=== PATIENT | female | born 1950 | race Caucasian/White ===

== ENCOUNTER → 2018-12-30 10:59 | Outpatient (CLI) | payer MEDICARE, OTHER, SELFPAY ==
--- NOTE | 2018-12-30 | DI.MG.S_ITS ---
BILATERAL DIGITAL SCREENING MAMMOGRAM 3D/2D WITH CAD: 12/30/2018 Comparison is made to exams dated: 12/24/2017 mammogram - [facility], 12/22/2016 mammogram, and 12/17/2015 mammogram - [facility]. The tissue of both breasts is extremely dense, which lowers the sensitivity of mammography. Current study was also evaluated with a Computer Aided Detection (CAD) system. No significant masses, calcifications, or other findings are seen in either breast. There has been no significant interval change. IMPRESSION: NEGATIVE There is no mammographic evidence of malignancy. A 1 year screening mammogram is recommended. This exam was interpreted at Station ID: [id number]. NOTE: For mammograms, a report in lay terms will be sent to the patient. Approximately 15% of breast malignancies will not be visualized mammographically. In the management of a palpable breast mass, a negative mammogram must not discourage biopsy of a clinically suspicious lesion. Electronically Signed By: Sony camarillo/abelino:12/31/2018 19:44:25 copy to: MARIELLA MIRANDA, [facility], ph: [phone] letter sent: Normal Exam ACR BI-RADS Category 1: Negative 3341F
== END ==
PROVIDERS: PCP Hospitalist; Visit Provider Psychologist School
DX: Z12.31 Encounter for screening mammogram for malignant neoplasm of breast (principal)
CPT/HCPCS: 77063; 77067

== ENCOUNTER → 2020-03-01 13:39 | Outpatient (CLI) | payer MEDICARE, OTHER, SELFPAY ==
--- NOTE | 2020-03-01 | DI.MG.S_ITS ---
BILATERAL DIGITAL SCREENING MAMMOGRAM 3D/2D WITH CAD: 03/01/2020 CLINICAL: Routine screening. Comparison is made to exams dated: 12/30/2018 mammogram, 12/24/2017 mammogram - [facility], and 12/22/2016 mammogram - [facility]. The tissue of both breasts is extremely dense, which lowers the sensitivity of mammography. Current study was also evaluated with a Computer Aided Detection (CAD) system. No significant masses, calcifications, or other findings are seen in either breast. There has been no significant interval change. IMPRESSION: NEGATIVE There is no mammographic evidence of malignancy. A 1 year screening mammogram is recommended. This exam was interpreted at Station ID: [id number]. NOTE: For mammograms, a report in lay terms will be sent to the patient. Approximately 15% of breast malignancies will not be visualized mammographically. In the management of a palpable breast mass, a negative mammogram must not discourage biopsy of a clinically suspicious lesion. Electronically Signed By: Sony camarillo/abelino:03/01/2020 14:29:08 letter sent: Normal Exam ACR BI-RADS Category 1: Negative 3341F
== END ==
PROVIDERS: PCP Hospitalist; Referring Provider Hospitalist; Visit Provider Hospitalist
DX: Z12.31 Encounter for screening mammogram for malignant neoplasm of breast (principal)
CPT/HCPCS: 77063; 77067

== ENCOUNTER → 2020-10-26 10:26 | Outpatient (CLI) | payer MEDICARE, OTHER, SELFPAY ==
[2020-10-26] MEDS: COVID-19 VACC #1, MRNA(MOD) 100 MCG/0.5 ML VIAL IM (10:31)
== END ==
PROVIDERS: PCP Hospitalist; Visit Provider Internal Medicine
DX: Z23 Encounter for immunization (principal)
CPT/HCPCS: 0011A; 91301

== ENCOUNTER → 2020-11-22 13:15 | Outpatient (CLI) | payer MEDICARE, OTHER, SELFPAY ==
[2020-11-22] MEDS: COVID-19 VACC #2, MRNA(MOD) 100 MCG/0.5 ML VIAL IM (13:21)
== END ==
PROVIDERS: PCP Hospitalist; Visit Provider Internal Medicine
DX: Z23 Encounter for immunization (principal)
CPT/HCPCS: 0012A; 91301

== ENCOUNTER → 2021-02-27 10:57 | Outpatient (CLI) | payer MEDICARE, OTHER, SELFPAY ==
[2021-02-27 12:08] LABS: Add Manual Diff / Slide Review NO; Basophils Absolute Auto 100 /uL (0-100); Basophils Percent Auto 1.2 % (0-2); Eosinophils Absolute Auto 200 /uL (0-450); Eosinophils Percent Auto 3.2 % (2-4); Hematocrit 36.6 % (36-46); Hemoglobin 11.7 g/dL (12.0-16.0); Lymphocytes Absolute Auto 1800 /uL (1100-4500); Lymphocytes Percent Auto 37.9 % (25-40); Mean Corpuscular HGB Conc 32.1 % (30-36); Mean Corpuscular Hemoglobin 24.8 PG (26-34); Mean Corpuscular Volume 77.5 fL (80-100); Monocytes Absolute Auto 400 /uL (0-900); Monocytes Percent Auto 7.5 % (3-14); Neutrophils Absolute Auto 2400 /uL (1500-7000); Neutrophils Percent Auto 50.2 % (50-75); Platelet Count 243 X10^3/uL (150-400); Red Blood Cell Count 4.72 X10^6/uL (4.0-5.2); Red Cell Distribution Width 17.6 % (11.6-14.8); White Blood Cell Count 4.8 X10^3/uL (4.5-11.0)
[2021-02-27 12:20] LABS: Alanine Aminotransferase 15 IU/L (<35); Albumin 4.1 g/dL (3.5-5.0); Albumin Globulin Ratio 1.2 (1.0-2.8); Alkaline Phosphatase 93 U/L (38-126); Aspartate Aminotransferase 31 IU/L (14-36); BUN Creatinine Ratio 38.8 (6-22); Bilirubin Total 0.4 mg/dL (0.2-1.3); Blood Urea Nitrogen 26 mg/dL (7-17); Calcium 9.6 mg/dL (8.4-10.2); Carbon Dioxide 27 mmol/L (22-32); Chloride 105 mmol/L (98-107); Cholesterol 249 mg/dL (140-199); Estimated Glomerular Filt Rate > 60.0 mL/min (>60); Globulin 3.3 g/dL (1.7-4.1); Glucose 112 mg/dL (80-110); HEMOLYSIS < 15 (0-50); Potassium 4.4 mmol/L (3.4-5.1); Sodium 138 mmol/L (137-145); Total Protein 7.4 g/dL (6.3-8.2); Triglycerides 59 mg/dL (35-150)
[2021-02-27 12:27] LABS: HDL Cholesterol 141 mg/dL (40-60); LDL Cholesterol Calculated 96 mg/dL (<100)
[2021-02-27 12:50] LABS: TSH w/ Reflex to FT4 1.38 uIU/mL (0.47-4.68)
== END ==
PROVIDERS: PCP Student in an Organized Health Care Education/Training Program; Referring Provider Student in an Organized Health Care Education/Training Program; Visit Provider Student in an Organized Health Care Education/Training Program
DX: M85.80 Other specified disorders of bone density and structure, unspecified site (principal); L60.3 Nail dystrophy; D25.1 Intramural leiomyoma of uterus; D64.9 Anemia, unspecified; Z13.220 Encounter for screening for lipoid disorders
CPT/HCPCS: 36415; 80053; 80061; 84443; 85025

== ENCOUNTER 2021-03-12 09:15 | Emergency (ER) | payer MEDICARE, OTHER, SELFPAY ==
[2021-03-12 09:17] VITALS: BP 151/82; PULSE 90; RESP 20; TEMP 36.9; O2SAT 99
[2021-03-12 09:38] LABS: Eosinophils Absolute Auto 0 /uL (0-450); Eosinophils Percent Auto 0.3 % (2-4); Hemoglobin 11.9 g/dL (12.0-16.0); Lymphocytes Absolute Auto 1500 /uL (1100-4500); Mean Corpuscular Hemoglobin 24.4 PG (26-34); Monocytes Absolute Auto 900 /uL (0-900); Platelet Count 200 X10^3/uL (150-400); Red Blood Cell Count 4.88 X10^6/uL (4.0-5.2)
[2021-03-12 09:44] LABS: Appearance Urine UA CLEAR; Bilirubin Urine UA 1+ (NEGATIVE); Color Urine UA YELLOW; Glucose Urine UA NEGATIVE (Negative); Ketones Urine UA 1+ (NEGATIVE); Leukocyte Esterase Urine UA TRACE (NEGATIVE); Nitrite Urine UA NEGATIVE (Negative); Occult Blood Urine UA 2+ (Negative); Protein Urine UA 1+ (Negative); Specific Gravity Urine UA 1.025 (1.000-1.035); Urobilinogen Urine UA 0.2 E.U./dL (0.2)
[2021-03-12 09:48] LABS: Add Manual Diff / Slide Review NO; Basophils Absolute Auto 100 /uL (0-100); Basophils Percent Auto 0.6 % (0-2); Hematocrit 37.1 % (36-46); Mean Corpuscular HGB Conc 32.1 % (30-36); Mean Corpuscular Volume 76.1 fL (80-100); Monocytes Percent Auto 7.8 % (3-14); Neutrophils Absolute Auto 9200 /uL (1500-7000); Neutrophils Percent Auto 78.3 % (50-75); Red Cell Distribution Width 17.7 % (11.6-14.8); White Blood Cell Count 11.7 X10^3/uL (4.5-11.0)
[2021-03-12 09:54] LABS: Alanine Aminotransferase 14 IU/L (<35); Albumin 4.3 g/dL (3.5-5.0); Albumin Globulin Ratio 1.2 (1.0-2.8); Alkaline Phosphatase 97 U/L (38-126); Aspartate Aminotransferase 26 IU/L (14-36); BUN Creatinine Ratio 27.1 (6-22); Bilirubin Total 0.8 mg/dL (0.2-1.3); Blood Urea Nitrogen 16 mg/dL (7-17); Calcium 9.4 mg/dL (8.4-10.2); Carbon Dioxide 25 mmol/L (22-32); Chloride 104 mmol/L (98-107); Estimated Glomerular Filt Rate > 60.0 mL/min (>60); Globulin 3.5 g/dL (1.7-4.1); Glucose 125 mg/dL (80-110); HEMOLYSIS < 15 (0-50); Lipase 68 U/L (23-300); Sodium 136 mmol/L (137-145); Total Protein 7.8 g/dL (6.3-8.2)
[2021-03-12 10:08] LABS: Bacteria Urine Occasional (0-1); Culture Indicated Urine Specimen Cultured; Mucus Urine 1+ (Negative); RBC Urine 1-5/HPF (0-5/HPF); Squamous Epithelial Cell Urine 1-5 /HPF (0-5/HPF); WBC Urine 1-5/HPF (0-5/HPF)
[2021-03-12 10:12] LABS: Ictotest Urine Negative (Negative)
--- NOTE | 2021-03-12 11:22 | DI.CT.S_ITS ---
PROCEDURE: CT CHEST ABD PEL W CON INDICATIONS: low abd pain TECHNIQUE: After the administration of intravenous contrast, 5 mm thick sections acquired from the lung apices to the symphysis. 5 mm coronal and sagittal reformats were performed, with additional 7 mm MIP reformats through the lungs. For radiation dose reduction, the following was used: automated exposure control, adjustment of mA and/or kV according to patient size. [facility], CT, CT ABDOMEN PELVIS WITH CONTRAST, 06/21/2019, 11:22. FINDINGS: Image quality: Excellent. CHEST: Lungs and pleura: There is mild atelectasis and scarring in the lung bases. A small pleural base nodule is demonstrated in the right lower lobe measuring up to 0.5 cm. This appears similar in size to the prior study on which it was partially visualized. No consolidation. No pleural effusions or pneumothorax. Central and peripheral airways appear patent and normal in caliber. Mediastinum: Heart size is normal. No pericardial effusion. No mediastinal or hilar adenopathy by size criteria. Thoracic aorta and central pulmonary arteries are normal in size. Esophagus is normal in caliber. There is a small hiatal hernia. Chest wall: No axillary or supraclavicular adenopathy by size criteria. Thyroid gland demonstrates no discrete nodule. ABDOMEN: Solid organs: There are small cysts in the left hepatic lobe and caudate lobe as well as additional small low-density foci throughout the liver which are too small to characterize but likely represent cysts. Findings are similar to the prior study. Biliary system is non dilated. There is a lobulated cystic lesion within the uncinate process of the pancreas measuring up to 2.4 x 0.9 cm in transverse dimension, stable in size compared to the prior study. There is suspected communication with the main pancreatic duct which is nondistended. The findings likely represent a side branch IPMN. Spleen is normal in size and enhancement. No adrenal nodules. Kidneys demonstrate no hydronephrosis. Peritoneum and bowel: Small bowel loops demonstrate normal wall thickness and caliber. The appendix is normal in appearance. There is colonic diverticulosis with associated segmental colonic and diverticular wall thickening in the sigmoid colon and associated pericolonic fat stranding. There is an associated lobulated segment of masslike thickening suspicious for a colonic mass. The differential includes an inflammatory phlegmon. There is a small amount of free fluid in the pelvis. No intraperitoneal free air. Nodes and vessels: No retroperitoneal or mesenteric adenopathy by size criteria. Aorta and inferior vena cava are normal in size. Miscellaneous: No ventral hernias. PELVIS: Genitourinary: Bladder wall thickness is normal. Miscellaneous: No inguinal hernias or adenopathy. Bones: No suspicious bony lesions. No vertebral body compression fractures. IMPRESSION: 1. Inflammatory changes in the sigmoid colon compatible with a colitis, possibly secondary to diverticulitis. However, there is masslike thickening in the sigmoid colon suspicious for an underlying colonic neoplasm. The differential includes an infectious phlegmon. Recommend correlation with colonoscopy. 2. Small amount of adjacent free fluid in the pelvis without a discrete drainable abscess collection. 3. Cystic lesion within the uncinate process of the pancreas likely represents a side branch IPMN and appears unchanged in size. Recommend follow-up in 12 months to demonstrate stability. Dictated by: Manjit Dumont M.D. on 03/12/2021 at 11:46 Approved by: Manjit Dumont M.D. on 03/12/2021 at 12:01
[2021-03-12] MEDS: SODIUM CHLORIDE 0.9% 1,000 ML 1000 ML IV (12:19)
[2021-03-12 12:57] VITALS: BP 139/65; PULSE 76; TEMP 38.3; O2SAT 97
[2021-03-12 13:28] LABS: Lactate (Lactic Acid) 0.8 mmol/L (0.7-2.1)
[2021-03-12 13:46] LABS: Procalcitonin 0.06 ng/mL (<0.5)
[2021-03-12 14:04] VITALS: TEMP 38.3
[2021-03-12] MEDS: ACETAMINOPHEN 325 MG TABLET 975 MG PO (14:04)
[2021-03-12] MEDS: cefTRIAXone 2,000 MG in SODIUM CHLORIDE 0.9% 100 ML 200 ML IV (14:04)
--- NOTE | 2021-03-12 14:14 | ED.GENADULT ---
HPI - General Adult General Chief complaint: Abdominal Pain Stated complaint: ABD pain Time Seen by Provider: 03/12/21 14:11 Source: patient Mode of arrival: Ambulatory Limitations: no limitations History of Present Illness HPI narrative: Woman with a prior history of diverticulitis presents with increasing left lower quadrant pain that is been present foot 3 days now described as feeling like severe gas moving in waves of pain across her lower abdomen focusing in the left lower quadrant. She has been having somewhat loose stools but there is no blood. There is no nausea or vomiting. She has had fevers that do respond to Tylenol. She describes no cough, chills, palpitations, headaches or significant myalgias. Related Data Previous Rx's Medication Instructions Recorded amoxicillin-pot clavulanate 1 tab PO BID #20 tab 03/12/21 [Augmentin XR] Allergies Allergy/AdvReac Type Severity Reaction Status Date / Time codeine Allergy Severe Vomiting Verified 03/12/21 09:20 Sulfa (Sulfonamide Allergy Unknown Verified 03/12/21 09:20 Antibiotics) Review of Systems Review of Systems Narrative: Remainder of complete review of systems is otherwise unremarkable except for that included in the HPI. Patient History Medical History Normal colonoscopy Surgical History History of colon surgery Social History Smoking Status: Never smoker Smoking Status: Never smoker alcohol intake frequency: 0-2 drinks per day Alcohol type: wine Substance Use Type: does not use Exam Narrative Exam Narrative: General: Healthy appearing, in no acute distress. Able to give a complete and coherent history. Well-nourished well-developed HEENT: Moist mucous membranes, normal sclera with reactive pupils, Respiratory: Lungs are clear to auscultation, no wheezing no rales no rhonchi. Full and symmetrical air movement Cardiac: Regular rate and rhythm no murmurs no bruits Abdomen: Soft, very tender in the left lower quadrant without rebound or guarding, mild tenderness over the bladder with no flank pain. Bowel tones are preserved. Skin: Warm and dry, no rashes Neurologic: Grossly neurologically intact with no obvious asymmetries or abnormalities Extremities: No trauma, well perfused Psych: Cooperative, appropriate insight and affect Initial Vital Signs Initial Vital Signs: Vital Signs Temperature 98.5 F 03/12/21 09:17 Pulse Rate 90 03/12/21 09:17 Respiratory Rate 20 03/12/21 09:17 Blood Pressure 151/82 H 03/12/21 09:17 Pulse Oximetry 99 03/12/21 09:17 Course Orders Ordered: ED Orders 03/12/21 09:21 EKG-12 Lead Stat 03/12/21 09:28 Complete Blood Count AUTO DIFF Stat Comprehensive Metabolic Panel Stat Lactate (Lactic Acid) Stat Lipase Stat Procalcitonin Stat 03/12/21 09:38 Ictotest Urine Stat Urinalysis and Microscopic Stat Urine Culture Stat 03/12/21 11:22 CT chest abd pel w con Stat 03/12/21 13:54 Blood Culture Stat Discontinued Medications Acetaminophen (Acetaminophen 325 Mg Tablet) 975 mg PO NOW ONE Stop: 03/12/21 13:19 Last Admin: 03/12/21 14:04 Dose: 975 mg Documented by: TAD Sodium Chloride (Normal Saline 0.9%) 1,000 mls @ 1,000 mls/hr IV BOLUS ONE Stop: 03/12/21 12:22 Last Infusion: 03/12/21 13:20 Dose: 0 mls/hr Documented by: Admin: 03/12/21 12:19 Dose: 1,000 mls/hr Documented by: TAD Ceftriaxone Sodium 2,000 mg/ (Sodium Chloride) 100 mls @ 200 mls/hr IV NOW ONE Stop: 03/12/21 13:19 Last Admin: 03/12/21 14:04 Dose: 200 mls/hr Documented by: TAD Vital Signs Vital signs: Vital Signs - 8 hr 03/12/21 09:17 03/12/21 12:57 03/12/21 14:04 Temperature 98.5 F 101 F H 101 F H Pulse Rate 90 76 Respiratory Rate 20 Blood Pressure 151/82 H 139/65 Pulse Oximetry 99 97 Medical Decision Making Medical Records Medical records reviewed: Yes I reviewed the patient's medical records. Lab Data Lab results reviewed: Yes I reviewed the patient's lab results. Result diagrams: 03/12/21 09:28 03/12/21 09:28 Labs: Lab Results 03/12/21 03/12/21 03/12/21 Range/Units 09:28 09:28 09:28 WBC 11.7 H (4.5-11.0) X10^3/uL RBC 4.88 (4.0-5.2) X10^6/uL Hgb 11.9 L (12.0-16.0) g/dL Hct 37.1 (36-46) % MCV 76.1 L (80-100) fL MCH 24.4 L (26-34) PG MCHC 32.1 (30-36) % RDW 17.7 H (11.6-14.8) % Plt Count 200 (150-400) X10^3/uL Neut % (Auto) 78.3 H (50-75) % Lymph % (Auto) 13.0 L (25-40) % [place] % (Auto) 7.8 (3-14) % Eos % (Auto) 0.3 L (2-4) % Baso % (Auto) 0.6 (0-2) % Neut # (Auto) 9200 H (6115-5260) /uL Lymph # (Auto) 1500 (3262-1994) /uL [place] # (Auto) 900 (0-900) /uL Eos # (Auto) 0 (0-450) /uL Baso # (Auto) 100 (0-100) /uL Sodium 136 L (137-145) mmol/L Potassium 4.0 (3.4-5.1) mmol/L Chloride 104 (98-107) mmol/L Carbon Dioxide 25 (22-32) mmol/L BUN 16 (7-17) mg/dL Creatinine 0.59 (0.52-1.04) mg/dL Estimated GFR > 60.0 (>60) mL/min BUN/Creatinine Ratio 27.1 H (6-22) Glucose 125 H (80-110) mg/dL Lactate 0.8 (0.7-2.1) mmol/L Calcium 9.4 (8.4-10.2) mg/dL Total Bilirubin 0.8 (0.2-1.3) mg/dL AST 26 (14-36) IU/L ALT 14 (<35) IU/L Alkaline Phosphatase 97 (38-126) U/L Total Protein 7.8 (6.3-8.2) g/dL Albumin 4.3 (3.5-5.0) g/dL Globulin 3.5 (1.7-4.1) g/dL Albumin/Globulin Ratio 1.2 (1.0-2.8) Lipase 68 (23-300) U/L Procalcitonin (<0.5) ng/mL Urine Color Urine Appearance Urine pH (4.5-8.0) Ur Specific [place] (1.000-1.035) Urine Protein (Negative) Urine Glucose (UA) (Negative) g/dL Urine Ketones (NEGATIVE) Urine Occult Blood (Negative) Urine Nitrate (Negative) Urine Bilirubin (NEGATIVE) Ur Bilirubin Confirm (Negative) Urine Urobilinogen (0.2) E.U./dL Ur Leukocyte Esterase (NEGATIVE) Urine RBC (0-5/HPF) Urine WBC (0-5/HPF) Ur Squamous Epith Cells (0-5/HPF) Urine Bacteria (None) Urine Mucus (Negative) Ur Culture Indicated? 03/12/21 03/12/21 Range/Units 09:28 09:38 WBC (4.5-11.0) X10^3/uL RBC (4.0-5.2) X10^6/uL Hgb (12.0-16.0) g/dL Hct (36-46) % MCV (80-100) fL MCH (26-34) PG MCHC (30-36) % RDW (11.6-14.8) % Plt Count (150-400) X10^3/uL Neut % (Auto) (50-75) % Lymph % (Auto) (25-40) % [place] % (Auto) (3-14) % Eos % (Auto) (2-4) % Baso % (Auto) (0-2) % Neut # (Auto) (5991-8814) /uL Lymph # (Auto) (6156-9695) /uL [place] # (Auto) (0-900) /uL Eos # (Auto) (0-450) /uL Baso # (Auto) (0-100) /uL Sodium (137-145) mmol/L Potassium (3.4-5.1) mmol/L Chloride (98-107) mmol/L Carbon Dioxide (22-32) mmol/L BUN (7-17) mg/dL Creatinine (0.52-1.04) mg/dL Estimated GFR (>60) mL/min BUN/Creatinine Ratio (6-22) Glucose (80-110) mg/dL Lactate (0.7-2.1) mmol/L Calcium (8.4-10.2) mg/dL Total Bilirubin (0.2-1.3) mg/dL AST (14-36) IU/L ALT (<35) IU/L Alkaline Phosphatase (38-126) U/L Total Protein (6.3-8.2) g/dL Albumin (3.5-5.0) g/dL Globulin (1.7-4.1) g/dL Albumin/Globulin Ratio (1.0-2.8) Lipase (23-300) U/L Procalcitonin 0.06 (<0.5) ng/mL Urine Color Yellow Urine Appearance Clear Urine pH 5.0 (4.5-8.0) Ur Specific [place] 1.025 (1.000-1.035) Urine Protein 1+ H (Negative) Urine Glucose (UA) Negative (Negative) g/dL Urine Ketones 1+ H (NEGATIVE) Urine Occult Blood 2+ H (Negative) Urine Nitrate Negative (Negative) Urine Bilirubin 1+ H (NEGATIVE) Ur Bilirubin Confirm Negative (Negative) Urine Urobilinogen 0.2 (0.2) E.U./dL Ur Leukocyte Esterase Trace H (NEGATIVE) Urine RBC 1-5/hpf (0-5/HPF) Urine WBC 1-5/hpf (0-5/HPF) Ur Squamous Epith Cells 1-5 /hpf (0-5/HPF) Urine Bacteria Occasional (0-1) (None) Urine Mucus 1+ H (Negative) Ur Culture Indicated? Specimen cultured Imaging Data CT chst abd pelvis: Radiologist's Impression: FINDINGS: Image quality: Excellent. CHEST: Lungs and pleura: There is mild atelectasis and scarring in the lung bases. A small pleural base nodule is demonstrated in the right lower lobe measuring up to 0.5 cm. This appears similar in size to the prior study on which it was partially visualized. No consolidation. No pleural effusions or pneumothorax. Central and peripheral airways appear patent and normal in caliber. Mediastinum: Heart size is normal. No pericardial effusion. No mediastinal or hilar adenopathy by size criteria. Thoracic aorta and central pulmonary arteries are normal in size. Esophagus is normal in caliber. There is a small hiatal hernia. Chest wall: No axillary or supraclavicular adenopathy by size criteria. Thyroid gland demonstrates no discrete nodule. ABDOMEN: Solid organs: There are small cysts in the left hepatic lobe and caudate lobe as well as additional small low-density foci throughout the liver which are too small to characterize but likely represent cysts. Findings are similar to the prior study. Biliary system is non dilated. There is a lobulated cystic lesion within the uncinate process of the pancreas measuring up to 2.4 x 0.9 cm in transverse dimension, stable in size compared to the prior study. There is suspected communication with the main pancreatic duct which is nondistended. The findings likely represent a side branch IPMN. Spleen is normal in size and enhancement. No adrenal nodules. Kidneys demonstrate no hydronephrosis. Peritoneum and bowel: Small bowel loops demonstrate normal wall thickness and caliber. The appendix is normal in appearance. There is colonic diverticulosis with associated segmental colonic and diverticular wall thickening in the sigmoid colon and associated pericolonic fat stranding. There is an associated lobulated segment of masslike thickening suspicious for a colonic mass. The differential includes an inflammatory phlegmon. There is a small amount of free fluid in the pelvis. No intraperitoneal free air. Nodes and vessels: No retroperitoneal or mesenteric adenopathy by size criteria. Aorta and inferior vena cava are normal in size. Miscellaneous: No ventral hernias. PELVIS: Genitourinary: Bladder wall thickness is normal. Miscellaneous: No inguinal hernias or adenopathy. Bones: No suspicious bony lesions. No vertebral body compression fractures. IMPRESSION: 1. Inflammatory changes in the sigmoid colon compatible with a colitis, possibly secondary to diverticulitis. However, there is masslike thickening in the sigmoid colon suspicious for an underlying colonic neoplasm. The differential includes an infectious phlegmon. Recommend correlation with colonoscopy. 2. Small amount of adjacent free fluid in the pelvis without a discrete drainable abscess collection. 3. Cystic lesion within the uncinate process of the pancreas likely represents a side branch IPMN and appears unchanged in size. Recommend follow-up in 12 months to demonstrate stability. Dictated by: Manjit Dumont M.D. on 03/12/2021 at 11:46 MDM Narrative Medical decision making narrative: 70-year-old woman with 3 days of left lower quadrant pain consistent with prior diverticulitis. Labs and CT scans hurt this diagnosis without evidence of abscess, need for emergent surgical intervention, acute bowel obstruction or sepsis. CT scan describes a masslike thickness proximal to the area of colitis in her colon. Given the fairly recent colonoscopy and surgery in that area it likely is not neoplastic however these findings were shared with the patient and a copy of her CT scan was provided. She will schedule an appointment with her GI surgeon, Dr. Ramirez at [facility] to review the findings. Discharge Plan Departure Patient Disposition: Home Clinical Impression: Diverticulitis Instructions: DI for Diverticulitis Activity Restrictions/Additional Instructions: Thank you for coming in today Sorry that you had such a long wait but I am glad that you have a seemingly very fixable problem. You do have diverticulitis. You do not have an abscess and you are not septic. You do need antibiotics. You are given a dose of ceftriaxone in the emergency department and I would like you to complete an additional 10 days of Augmentin. This prescription was electronically transmitted to [facility] for you today There were some abnormalities on your CT scan that are concerning however knowing that you had a fairly recent colonoscopy and surgery in that area of concern I think it simply needs follow-up with Dr. Ramirez. Please call his office to schedule an appointment. I have given you copies of your labs in your CT scan from this visit. If you have additional worries or concerns or something new develops, please feel free to return to the emergency department Prescriptions: New amoxicillin-pot clavulanate [Augmentin XR] 1,000-62.5 mg tablet extended release 12 hr 1 tab PO BID Qty: 20 RF: 0 Referrals: Romana Buchanan DO [Primary Care Provider] -
[2021-03-12 14:40] VITALS: BP 124/78; PULSE 88; RESP 14; TEMP 37.6; O2SAT 99
== END 2021-03-12 14:41 | disposition home or self-care (01) ==
PROVIDERS: Emergency Medicine; Emergency Provider Emergency Medicine; PCP Student in an Organized Health Care Education/Training Program
DX: K57.92 Diverticulitis of intestine, part unspecified, without perforation or abscess without bleeding (principal); R03.0 Elevated blood-pressure reading, without diagnosis of hypertension
CPT/HCPCS: 36415; 71260; 74177; 80053; 81001; 83605; 83690; 84145; 85025; 87040; 87077; 87086; 87147; 93005; 93010; 96361; 96365; 99284; J0696; Q9967

== ENCOUNTER → 2021-03-27 14:42 | Outpatient (CLI) | payer MEDICARE, OTHER, SELFPAY ==
--- NOTE | 2021-03-27 14:45 | DI.MG.S_ITS ---
BILATERAL DIGITAL SCREENING MAMMOGRAM 3D/2D WITH CAD: 03/27/2021 CLINICAL: Routine screening. Comparison is made to exams dated: 03/01/2020 mammogram, 12/30/2018 mammogram, and 12/24/2017 mammogram - [facility]. The tissue of both breasts is extremely dense, which lowers the sensitivity of mammography. Current study was also evaluated with a Computer Aided Detection (CAD) system. No significant masses, calcifications, or other findings are seen in either breast. There has been no significant interval change. IMPRESSION: NEGATIVE There is no mammographic evidence of malignancy. A 1 year screening mammogram is recommended. This exam was interpreted at Station ID: [id number]. NOTE: For mammograms, a report in lay terms will be sent to the patient. Approximately 15% of breast malignancies will not be visualized mammographically. In the management of a palpable breast mass, a negative mammogram must not discourage biopsy of a clinically suspicious lesion. Electronically Signed By: Sony camarillo/abelino:03/27/2021 17:41:42 copy to: Romana Buchanan D.O. letter sent: Normal Exam ACR BI-RADS Category 1: Negative 3341F
[2021-03-27 16:25] LABS: HEMOLYSIS < 15 (0-50); Iron 44 ug/dL (37-170)
[2021-03-27 16:36] LABS: Percent Iron Saturation 10 % (15-50); Total Iron Binding Capacity 448 ug/dL (265-497); Transferrin 365 mg/dL (206-381)
[2021-03-27 17:06] LABS: Ferritin 9 ng/mL (11-264)
== END ==
PROVIDERS: PCP Student in an Organized Health Care Education/Training Program; Referring Provider Obstetrics & Gynecology; Visit Provider Obstetrics & Gynecology
DX: Z12.31 Encounter for screening mammogram for malignant neoplasm of breast (principal); D50.9 Iron deficiency anemia, unspecified
CPT/HCPCS: 36415; 77063; 77067; 82728; 83540; 83550

== ENCOUNTER → 2021-04-03 08:39 | Outpatient (CLI) | payer MEDICARE, OTHER, SELFPAY ==
[2021-04-03 11:40] LABS: COVID19 -Nasal RAPID Negative (Negative)
== END ==
PROVIDERS: PCP Student in an Organized Health Care Education/Training Program; Visit Provider Physician Assistant
DX: Z01.812 Encounter for preprocedural laboratory examination (principal); Z20.822 Contact with and (suspected) exposure to COVID-19
CPT/HCPCS: 87635; C9803

== ENCOUNTER → 2022-03-20 08:09 | Outpatient (CLI) | payer MEDICARE, OTHER, SELFPAY ==
[2022-03-20 09:17] LABS: Add Manual Diff / Slide Review NO; Basophils Absolute Auto 0 /uL (0-100); Basophils Percent Auto 0.9 % (0-2); Eosinophils Absolute Auto 200 /uL (0-450); Eosinophils Percent Auto 4.7 % (2-4); Hematocrit 36.6 % (36-46); Lymphocytes Absolute Auto 1900 /uL (1100-4500); Mean Corpuscular HGB Conc 32.8 % (30-36); Mean Corpuscular Hemoglobin 24.5 PG (26-34); Mean Corpuscular Volume 74.8 fL (80-100); Monocytes Absolute Auto 400 /uL (0-900); Monocytes Percent Auto 9.9 % (3-14); Neutrophils Absolute Auto 1200 /uL (1500-7000); Neutrophils Percent Auto 32.5 % (50-75); Platelet Count 178 X10^3/uL (150-400); Red Blood Cell Count 4.89 X10^6/uL (4.0-5.2); Red Cell Distribution Width 21.4 % (11.6-14.8); White Blood Cell Count 3.8 X10^3/uL (4.5-11.0)
[2022-03-20 09:26] LABS: HEMOLYSIS < 15 (0-50); Iron 93 ug/dL (37-170)
[2022-03-20 09:37] LABS: Percent Iron Saturation 22 % (15-50); Total Iron Binding Capacity 428 ug/dL (265-497); Transferrin 355 mg/dL (206-381)
[2022-03-20 09:39] LABS: Alanine Aminotransferase 13 IU/L (<35); Albumin 4.2 g/dL (3.5-5.0); Albumin Globulin Ratio 1.3 (1.0-2.8); Alkaline Phosphatase 86 U/L (38-126); Aspartate Aminotransferase 29 IU/L (14-36); BUN Creatinine Ratio 23.7 (6-22); Bilirubin Total 0.3 mg/dL (0.2-1.3); Blood Urea Nitrogen 18 mg/dL (7-17); Carbon Dioxide 28 mmol/L (22-32); Chloride 104 mmol/L (98-107); Cholesterol 246 mg/dL (140-199); Estimated Glomerular Filt Rate > 60 mL/min (>60); Globulin 3.2 g/dL (1.7-4.1); Glucose 98 mg/dL (80-110); HEMOLYSIS < 15 (0-50); Potassium 4.1 mmol/L (3.4-5.1); Sodium 138 mmol/L (137-145); Total Protein 7.4 g/dL (6.3-8.2); Triglycerides 56 mg/dL (35-150)
[2022-03-20 09:43] LABS: Anisocytosis 1+; Hypochromasia 1+
[2022-03-20 09:58] LABS: TSH w/ Reflex to FT4 2.56 uIU/mL (0.47-4.68)
[2022-03-20 10:01] LABS: LDL Cholesterol Calculated 111 mg/dL (<100)
[2022-03-20 10:02] LABS: HDL Cholesterol 124 mg/dL (40-60)
[2022-03-20 10:14] LABS: Ferritin 13 ng/mL (11-264)
[2022-03-20 10:46] LABS: Folate 8.9 ng/mL (2.76-20.0); Vitamin B12 259 pg/mL (239-931)
== END ==
PROVIDERS: PCP Student in an Organized Health Care Education/Training Program; Referring Provider Student in an Organized Health Care Education/Training Program; Visit Provider Student in an Organized Health Care Education/Training Program
DX: D50.9 Iron deficiency anemia, unspecified (principal); E78.49 Other hyperlipidemia; R53.83 Other fatigue; M85.80 Other specified disorders of bone density and structure, unspecified site; K57.92 Diverticulitis of intestine, part unspecified, without perforation or abscess without bleeding
CPT/HCPCS: 36415; 80053; 80061; 82607; 82728; 82746; 83540; 83550; 84443; 85025

== ENCOUNTER → 2022-04-03 11:34 | Outpatient (CLI) | payer MEDICARE, OTHER, SELFPAY ==
--- NOTE | 2022-04-03 | DI.MG.S_ITS ---
BILATERAL DIGITAL SCREENING MAMMOGRAM 3D/2D WITH CAD: 04/03/2022 CLINICAL: Routine screening. Comparison is made to exams dated: 03/27/2021 mammogram, 03/01/2020 mammogram, and 12/30/2018 mammogram - [facility]. The tissue of both breasts is extremely dense, which lowers the sensitivity of mammography. Current study was also evaluated with a Computer Aided Detection (CAD) system. No significant masses, calcifications, or other findings are seen in either breast. There has been no significant interval change. IMPRESSION: NEGATIVE There is no mammographic evidence of malignancy. A 1 year screening mammogram is recommended. Based on the Tyrer Cuzick model (a risk assessment model) the patient's lifetime risk is 12.6% and her 10 year risk is 8.8%. According to the ACR, ACS, and NCCN guidelines, an annual breast MRI exam along with mammogram is recommended if the patient's lifetime risk is 20% or greater. This exam was interpreted at Station ID: [id number]. NOTE: For mammograms, a report in lay terms will be sent to the patient. Approximately 15% of breast malignancies will not be visualized mammographically. In the management of a palpable breast mass, a negative mammogram must not discourage biopsy of a clinically suspicious lesion. Electronically Signed By: Kiko Leggett M.D., jr/abelino:04/03/2022 12:12:47 copy to: Romana Buchanan D.O. letter sent: Normal Exam ACR BI-RADS Category 1: Negative 3341F
== END ==
PROVIDERS: PCP Student in an Organized Health Care Education/Training Program; Referring Provider Student in an Organized Health Care Education/Training Program; Visit Provider Student in an Organized Health Care Education/Training Program
DX: Z12.31 Encounter for screening mammogram for malignant neoplasm of breast (principal)
CPT/HCPCS: 77063; 77067

== ENCOUNTER → 2022-05-03 12:09 | Outpatient (CLI) | payer MEDICARE, OTHER, SELFPAY | PROVIDERS: PCP Student in an Organized Health Care Education/Training Program; Visit Provider Nurse Practitioner Family | DX: R30.0 Dysuria (principal); N89.8 Other specified noninflammatory disorders of vagina | CPT/HCPCS: 87086; 87210 ==

== ENCOUNTER → 2022-05-16 11:11 | Outpatient (CLI) | payer MEDICARE, OTHER, SELFPAY | PROVIDERS: PCP Student in an Organized Health Care Education/Training Program; Visit Provider Nurse Practitioner Family | DX: R30.0 Dysuria (principal) | CPT/HCPCS: 87086; 87210 ==

== ENCOUNTER → 2022-11-02 14:07 | Outpatient (CLI) | payer MEDICARE, OTHER, SELFPAY ==
[2022-11-02 15:12] LABS: Influenza A - CEPHEID Flu A NEGATIVE (NEGATIVE); Influenza B - CEPHEID Flu B NEGATIVE (NEGATIVE); Respiratory Syncytial Virus Negative (Negative)
[2022-11-02 15:14] LABS: COVID-19 CEPHEID 4-PLEX PCR Negative (Negative)
== END ==
PROVIDERS: PCP Student in an Organized Health Care Education/Training Program; Visit Provider Nurse Practitioner Family
DX: J02.9 Acute pharyngitis, unspecified (principal); R53.81 Other malaise; Z20.822 Contact with and (suspected) exposure to COVID-19
CPT/HCPCS: 0241U; 87070

== ENCOUNTER → 2023-02-25 08:03 | Outpatient (CLI) | payer MEDICARE, OTHER, SELFPAY ==
[2023-02-25 09:15] LABS: Add Manual Diff / Slide Review NO; Basophils Absolute Auto 0 /uL (0-100); Basophils Percent Auto 0.7 % (0-2); Eosinophils Absolute Auto 200 /uL (0-450); Eosinophils Percent Auto 3.9 % (2-4); Hematocrit 38.3 % (36-46); Hemoglobin 12.4 g/dL (12.0-16.0); Lymphocytes Absolute Auto 2200 /uL (1100-4500); Lymphocytes Percent Auto 40.6 % (25-40); Mean Corpuscular HGB Conc 32.5 % (30-36); Mean Corpuscular Hemoglobin 26.4 PG (26-34); Mean Corpuscular Volume 81.2 fL (80-100); Monocytes Absolute Auto 600 /uL (0-900); Neutrophils Absolute Auto 2400 /uL (1500-7000); Neutrophils Percent Auto 43.8 % (50-75); Platelet Count 206 X10^3/uL (150-400); Red Blood Cell Count 4.72 X10^6/uL (4.0-5.2); Red Cell Distribution Width 15.7 % (11.6-14.8); White Blood Cell Count 5.4 X10^3/uL (4.5-11.0)
[2023-02-25 09:19] LABS: Alanine Aminotransferase 14 IU/L (<35); Albumin Globulin Ratio 1.2 (1.0-2.8); Alkaline Phosphatase 82 U/L (38-126); Aspartate Aminotransferase 23 IU/L (14-36); Bilirubin Total 0.3 mg/dL (0.2-1.3); Blood Urea Nitrogen 20 mg/dL (7-17); Calcium 8.9 mg/dL (8.4-10.2); Carbon Dioxide 27 mmol/L (22-32); Chloride 103 mmol/L (98-107); Cholesterol 221 mg/dL (140-199); Estimated Glomerular Filt Rate > 60 mL/min (>60); Globulin 3.3 g/dL (1.7-4.1); Glucose 108 mg/dL (80-110); HEMOLYSIS < 15 (0-50); Potassium 4.4 mmol/L (3.4-5.1); Sodium 136 mmol/L (137-145); Total Protein 7.3 g/dL (6.3-8.2); Triglycerides 63 mg/dL (35-150)
[2023-02-25 09:31] LABS: HDL Cholesterol 118 mg/dL (40-60); LDL Cholesterol Calculated 90 mg/dL (<100)
[2023-02-25 10:22] LABS: TSH w/ Reflex to FT4 2.61 uIU/mL (0.47-4.68)
== END ==
PROVIDERS: PCP Student in an Organized Health Care Education/Training Program; Referring Provider Student in an Organized Health Care Education/Training Program; Visit Provider Student in an Organized Health Care Education/Training Program
DX: E78.49 Other hyperlipidemia (principal); D50.9 Iron deficiency anemia, unspecified; N95.1 Menopausal and female climacteric states; M85.80 Other specified disorders of bone density and structure, unspecified site; R68.89 Other general symptoms and signs
CPT/HCPCS: 36415; 80053; 80061; 84443; 85025

== ENCOUNTER → 2023-04-08 13:19 | Outpatient (CLI) | payer MEDICARE, OTHER, SELFPAY ==
--- NOTE | 2023-04-08 13:20 | DI.MG.S_ITS ---
BILATERAL DIGITAL SCREENING MAMMOGRAM 3D/2D WITH CAD: 04/08/2023 CLINICAL: Routine screening. Family history of breast cancer. Comparison is made to exams dated: 04/03/2022 mammogram, 03/27/2021 mammogram, and 03/01/2020 mammogram - [facility]. Both breasts are extremely dense, which lowers the sensitivity of mammography (category d />75% glandular tissue). Current study was also evaluated with a Computer Aided Detection (CAD) system. No significant masses, calcifications, or other findings are seen in either breast. There has been no significant interval change. IMPRESSION: NEGATIVE There is no mammographic evidence of malignancy. A 1 year screening mammogram is recommended. Based on the Tyrer Cuzick model (a risk assessment model) the patient's lifetime risk is 11.8% and her 10 year risk is 8.9%. According to the ACR, ACS, and NCCN guidelines, an annual breast MRI exam along with mammogram is recommended if the patient's lifetime risk is 20% or greater. This exam was interpreted at Station ID: [id number]. NOTE: For mammograms, a report in lay terms will be sent to the patient. Approximately 15% of breast malignancies will not be visualized mammographically. In the management of a palpable breast mass, a negative mammogram must not discourage biopsy of a clinically suspicious lesion. Electronically Signed By: Hazel cheng/abelino:04/08/2023 15:12:44 letter sent: Normal Exam ACR BI-RADS Category 1: Negative 3341F
== END ==
PROVIDERS: PCP Student in an Organized Health Care Education/Training Program; Referring Provider Student in an Organized Health Care Education/Training Program; Visit Provider Student in an Organized Health Care Education/Training Program
DX: Z12.31 Encounter for screening mammogram for malignant neoplasm of breast (principal); Z80.3 Family history of malignant neoplasm of breast
CPT/HCPCS: 77063; 77067

== ENCOUNTER → 2024-04-18 | Outpatient (CLI) | payer MEDICARE, OTHER, SELFPAY ==
--- NOTE | 2024-04-18 13:19 | DI.MG.S_ITS ---
Patient Name: WEST LYMAN date: 1950 Sex: F Attending Physician: Dewayne Indications: Date: 04/18/2024 14:19 At the request of: ANIKA RODRIGUEZ Procedure: MM screening mammo BI BILATERAL DIGITAL SCREENING MAMMOGRAM 3D/2D WITH CAD: 04/18/2024 CLINICAL: Routine screening. Family history of breast cancer. Comparison is made to exams dated: 04/08/2023 mammogram, 04/03/2022 mammogram, and 03/27/2021 mammogram - [facility]. Both breasts are extremely dense, which lowers the sensitivity of mammography (category d />75% glandular tissue). Current study was also evaluated with a Computer Aided Detection (CAD) system. No significant masses, calcifications, or other findings are seen in either breast. There has been no significant interval change. IMPRESSION: NEGATIVE There is no mammographic evidence of malignancy. A 1 year screening mammogram is recommended. Based on the Tyrer Cuzick model (a risk assessment model) the patient's lifetime risk is 11.1% and her 10 year risk is 9.1%. According to the ACR, ACS, and NCCN guidelines, an annual breast MRI exam along with mammogram is recommended if the patient's lifetime risk is 20% or greater. This exam was interpreted at Station ID: [id number]. Continued Report - Page 2 of 2 Patient Name: WEST LYMAN date: 1950 Sex: F Attending Physician: Dewayne Indications: Date: 04/18/2024 14:19 At the request of: ANIKA RODRIGUEZ Procedure: MM screening mammo BI NOTE: For mammograms, a report in lay terms will be sent to the patient. Approximately 15% of breast malignancies will not be visualized mammographically. In the management of a palpable breast mass, a negative mammogram must not discourage biopsy of a clinically suspicious lesion. Electronically Signed By: Cesar solitario/abelino:04/18/2024 14:19:51 letter sent: Normal Exam ACR BI-RADS Category 1: Negative [id number]
== END ==
PROVIDERS: PCP Student in an Organized Health Care Education/Training Program; Referring Provider Student in an Organized Health Care Education/Training Program; Visit Provider Student in an Organized Health Care Education/Training Program
DX: Z12.31 Encounter for screening mammogram for malignant neoplasm of breast (principal); Z80.3 Family history of malignant neoplasm of breast; R92.343 Mammographic extreme density, bilateral breasts
CPT/HCPCS: 77063; 77067

== ENCOUNTER → 2024-09-20 06:50 | Outpatient (CLI) | payer MEDICARE, OTHER, SELFPAY ==
--- NOTE | 2024-09-20 06:51 | DI.ECHO.S_ITS ---
[facility] : : [address] : : [place] : : [id number] : : Phone: [phone] Echocardiogram Report + + :Name: WEST JUAREZ Study Date: 09/20/2024 Height: 62 in : :[facility] ReadingLocation: Weight: 117 lb : : Gender: Female BSA: 1.5 m2 : :: 1950 Age: 74 yrs BP: 140/80 mmHg: :Reason For Study: S/P MITRAL VALVE ANNULOPLASTY : :Ordering Physician: JOSE RAMON ROBERTSON Performed By: Kiko Zamorano : :Referring: JOSE RAMON ROBERTSON : + + Interpretation Summary 1. Normal LV contractility with EF > 55%. No WMA. No LVH. Grade 1 diastolic dysfunction. 2. Normal RV contractility. 3. Severe LAE. Moderate CHA. 4. Mitral annular ring in place. Mild eccentric MR. 5. Mild to moderate AI. 6. No obvious intracardiac shunts. 7. No obvious intracardiac masses/thrombi. 8. No hemodynamically significant pericardial effusion. 9. Low right sided filling pressures. Conclusion: Normal biventricular systolic function with mitral annular ring in place and mild eccentric mitral regurgitation and mild to moderate aortic insufficiency. When compared with previous study, there is significant improvement of the mitral regurgitation with mild progression of aortic insufficiency. Procedure: A two-dimensional transthoracic echocardiogram with color flow and Doppler was performed. The study quality was technically good. Comparison is made with the echocardiogram of 03/01/2024. The patient was in normal sinus rhythm during the exam. Left Ventricle: The left ventricle is normal in size. There is normal left ventricular wall thickness. There is no ventricular septal defect visualized. The ejection fraction is estimated to be 55-60%. There are no focal wall motion abnormalities. Diastolic parameters suggest probable normal left ventricular diastolic function and normal filling pressures. Right Ventricle: The right ventricle is normal in size and function. Atria: The left atrium is severely dilated. The right atrium is mild to moderately dilated. There is no Doppler evidence for an atrial septal defect. Mitral Valve: The mitral valve leaflets appear mildly thickened, but open well. An annuloplasty ring is noted in the mitral position. There is mild mitral regurgitation. Aortic Valve: The aortic valve is trileaflet. The aortic valve opens well. There is mild to moderate aortic regurgitation. Tricuspid Valve: The tricuspid valve leaflets are thin and pliable. There is trace tricuspid regurgitation. The right ventricular systolic pressure is estimated to be at least 30 mmHg based on an estimated right atrial pressure of 3 mm Hg. Pulmonic Valve: The pulmonic valve leaflets are thin and pliable; valve motion is normal. There is no pulmonic valvular regurgitation. Great Vessels: The aortic root is normal size. The dimensions of the ascending aorta are normal. The pulmonary artery is normal size. The IVC is of normal diameter and collapses greater than 50% with a sniff. This suggests a low right atrial pressure of 3 mm Hg. Pericardium/ Pleura There is no pericardial effusion. There is no pleural effusion. MMode/2D Measurements & Calculations LVIDd: 4.7 cm LVOT diam: 1.9 cm LVIDs: 3.3 cm Ao root diam: 2.9 cm FS: 28.7 % asc Aorta Diam: 3.2 cm EPSS: 0.43 cm Ao Arch Diam (Prox Trans): 1.6 cm IVSd: 0.71 cm LVPWd: 0.74 cm LV henley. diameter/BSA (cm/m^2): 3.1 LV sys. diameter/BSA (cm/m^2): 2.2 LA A2 area: 17.8 cm2 RA long axis: 4.6 cm LA A4 area: 21.9 cm2 RA area: 18.0 cm2 LA length (vol): 5.6 cm RA vol: 59.7 ml LA vol: 58.5 ml RA : 39.3 ml/m2 LA vol index: 38.4 ml/m2 IVC diam: 1.4 cm RVD1 (basal): 3.5 cm RVD2 (mid): 2.4 cm TAPSE: 2.2 cm Doppler Measurements & Calculations Ao V2 max: 124.8 cm/sec LVOT Max Jose: 110.8 cm/sec Ao V2 mean: 89.7 cm/sec LV V1 max P.9 mmHg Ao max P.2 mmHg LV V1 VTI: 23.7 cm Ao mean P.5 mmHg IDANIA(I,D): 2.6 cm2 Ao V2 VTI: 25.6 cm IDANIA(V,D): 2.5 cm2 sev ratio: 0.92 IDANIA indexed to BSA (cm^2/m^2): 1.7 AI P1/2t: 362.8 msec AI dec slope: 469.1 cm/sec2 MV E max jose: 120.1 cm/sec TR max jose: 258.3 cm/sec MV A max jose: 105.1 cm/sec TR max P.7 mmHg MV E/A: 1.1 PA V2 max: 59.4 cm/sec Med Peak E' Jose: 7.4 cm/sec PA V2 mean: 46.7 cm/sec E/E' med: 16.2 PA mean P.91 mmHg Lat Peak E' Jose: 9.0 cm/sec PA pr(Accel): 34.5 mmHg E/E' lat: 13.3 E/e' average: 14.8 MV dec time: 0.19 sec SV(LVOT): 65.7 ml Reading Physician:
== END ==
PROVIDERS: PCP Student in an Organized Health Care Education/Training Program; Referring Provider Internal Medicine; Visit Provider Internal Medicine
DX: I08.0 Rheumatic disorders of both mitral and aortic valves (principal); Z98.890 Other specified postprocedural states
CPT/HCPCS: 93306

== ENCOUNTER 2025-03-29 12:30 | Outpatient (RCR) | payer MEDICARE, OTHER, SELFPAY | END 2025-03-29 14:30 | LOC: CAR 12:30 | PROVIDERS: PCP Student in an Organized Health Care Education/Training Program; Referring Provider Thoracic Surgery (Cardiothoracic Vascular Surgery); Visit Provider Thoracic Surgery (Cardiothoracic Vascular Surgery) | DX: Z95.2 Presence of prosthetic heart valve (principal) | CPT/HCPCS: 93798 ==

== ENCOUNTER → 2025-04-19 13:56 | Outpatient (CLI) | payer MEDICARE, OTHER, SELFPAY ==
--- NOTE | 2025-04-19 14:20 | DI.MG.S_ITS ---
MM screening mammo BI: 04/19/2025. BI-RADS: 1 CLINICAL: 74-year old female for bilateral screening mammogram. Tyrer-Cuzick lifetime risk of 8.3%. No personal or first-degree family history of breast cancer. Current reported family history of breast cancer: paternal grandmother. History of ovarian cancer in one first-degree relative. PRIOR EXAMS 04/18/2024, 04/08/2023, 12/31/2022, 04/03/2022. MAMMOGRAPHY TECHNIQUE: 2D and 3D (tomosynthesis) digital mammographic views obtained, with additional images as needed for full coverage. Current study was also evaluated with a Computer Aided Detection (CAD) system. DENSITY D. The breasts are extremely dense, which lowers the sensitivity of mammography. MAMMOGRAPHY FINDINGS Bilateral: No suspicious mass, asymmetry, microcalcification, or other abnormality seen. IMPRESSION: * No evidence of malignancy. RECOMMENDATIONS Bilateral * Annual screening mammography. OVERALL ASSESSMENT CATEGORY BI-RADS-1: Negative. The [employer] recommends annual screening mammography beginning at age 40 for women with average risk of breast cancer. ELECTRONICALLY SIGNED: Lianne Mauro M.D. on 04/19/2025 at 11:57:03 PM PT Interpreting Station ID: [id number]
== END ==
LOC: MAMMO 13:56
PROVIDERS: PCP Student in an Organized Health Care Education/Training Program; Referring Provider Student in an Organized Health Care Education/Training Program; Visit Provider Student in an Organized Health Care Education/Training Program
DX: Z12.31 Encounter for screening mammogram for malignant neoplasm of breast (principal); Z80.3 Family history of malignant neoplasm of breast; R92.343 Mammographic extreme density, bilateral breasts
CPT/HCPCS: 77063; 77067

== ENCOUNTER 2025-06-27 04:30 | Emergency (ER) | payer MEDICARE, OTHER, SELFPAY ==
[2025-06-27] VITALS (8 sets, daily range): BP systolic 116–151; BP diastolic 55–67; PULSE 68–78; RESP 16–22; TEMP 37; O2SAT 93–97; BMI 21.9
--- NOTE | 2025-06-27 04:50 | EKG_ITS ---
[address] [address] [address] [address] Test Date: 2025-06-27 Pat Name: Padmini Rossi Department: [facility] Room: Gender: Female Electronic Engineering Technician: NARENDRA : 1950 Requested By: Order Number: [id number] Reading MD: Shabbir Villalta Measurements Intervals [place] Rate: 67 P: DE: 122 QRS: 59 QRSD: 80 T: 75 QT: 418 QTc: 441 Interpretive Statements Normal sinus rhythm Electronically Signed On 06-28-2025 8:37:29 PDT by Shabbir Villalta
--- NOTE | 2025-06-27 04:55 | ED.ABDPAIN ---
HPI - Abdominal Pain General Chief Complaint: Abdominal Pain Stated Complaint: Abdominal pain, Chills Time Seen by Provider: 06/27/25 04:55 Source: patient Mode of arrival: Ambulatory History of Present Illness HPI narrative: 79-year-old female with history of diverticulitis twice prior, last event a few years ago, no surgical interventions, complains of nontraumatic left lower quadrant abdominal pain since yesterday, no nausea or vomiting, no black or red or loose stools, last bowel movement yesterday morning unremarkable, no recent exposure to antibiotics. No history of kidney stones known, no painful or frequent urination. She has been doing some abdominal exercises but does not believe that she had a strain or injury recent. No known kidney problems. Denies use of blood thinner medications. Related Data Home Medications ?Medication ?Instructions ?Recorded ?Confirmed cyclosporine 0.05 % eye drops 1 drp EYE-BOTH Q12H 03/05/23 06/27/25 (Restasis MultiDose) pantoprazole 40 mg tablet,delayed 80 mg PO BID Severe acid reflux 05/16/25 06/27/25 release Previous Rx's ?Medication ?Instructions ?Recorded amoxicillin 875 mg-potassium 1 tab PO BID #20 tabs 06/27/25 clavulanate 125 mg tablet Allergies Allergy/AdvReac Type Severity Reaction Status Date / Time codeine Allergy Severe Vomiting Verified 05/16/25 13:23 Sulfa (Sulfonamide Allergy Intermediate hives Verified 05/16/25 13:23 Antibiotics) Patient History Medical History Normal colonoscopy Surgical History History of colon surgery Social History Smoking Status: Never smoker Smoking Status: Never smoker alcohol intake frequency: 0-2 drinks per day Alcohol type: wine Exam Narrative Exam Narrative: GENERAL: Well-developed patient, in mild distress. HEAD: Atraumatic. Normocephalic. EYES: Pupils equal round and reactive. Extraocular motions intact. No scleral icterus. No injection or drainage. ENT: Nose without bleeding, purulent drainage. Throat without erythema, tonsillar hypertrophy or exudate. Airway patent. NECK: Trachea midline. Non tender CARDIOVASCULAR: Regular rate and rhythm without murmurs, gallops, or rubs. RESPIRATORY: Clear to auscultation. Breath sounds equal bilaterally. No wheezes, rales, or rhonchi. GASTROINTESTINAL: Tenderness left lower quadrant, nondistended nonrigid, bowel tones unremarkable without rushes or tinkles. EXTREMITIES: No edema or joint tenderness. BACK: Nontender without deformity or crepitance. No flank tenderness. NEURO: AOx3. Motor functions grossly nonfocal. SKIN: No rash or erythema of visible areas Initial Vital Signs Initial Vital Signs: Vital Signs Pulse Oximetry 97 06/27/25 04:37 Course Orders Ordered: Discontinued Medications Hydrocodone Bitart/Acetaminophen (Hydrocodone/Acet 5/325 Prepack) 1 bottle MISC DIRECTED ONE Stop: 06/27/25 06:13 Last Admin: 06/27/25 06:32 Dose: 1 bottle Documented By: MANJU Sodium Chloride (Normal Saline 0.9%) 1,000 mls @ 1,000 mls/hr IV BOLUS ONE Stop: 06/27/25 06:05 Last Infusion: 06/27/25 06:19 Dose: Infused Documented By: Admin: 06/27/25 05:10 Dose: 1,000 mls/hr Documented By: MANJU Piperacillin Sod/Tazobactam (Sod 4.5 gm/ Sodium Chloride) 100 mls @ 200 mls/hr IV NOW ONE Stop: 06/27/25 05:58 Last Infusion: 06/27/25 06:50 Dose: Infused Documented By: Admin: 06/27/25 06:09 Dose: 200 mls/hr Documented By: MANJU Ketorolac Tromethamine (Ketorolac 30 Mg/Ml Vial) 15 mg IV NOW ONE Stop: 06/27/25 05:07 Last Admin: 06/27/25 05:10 Dose: 15 mg Documented By: MANJU Ondansetron HCl (Ondansetron 4 Mg/2 Ml Inj) 4 mg IV NOW PRN PRN Reason: Nausea And Vomiting Ondansetron HCl (Ondansetron 4 Mg Odt) 4 mg PO NOW PRN PRN Reason: Nausea And Vomiting Ondansetron HCl (Ondansetron 4 Mg Odt Prepack) 1 bottle [facility] DIRECT[facility] ONE Stop: 06/27/25 06:14 Last Admin: 06/27/25 06:32 Dose: 1 bottle Documented By: Carson Vital Signs Vital signs: Vital Signs - 8 hr 06/27/25 04:37 06/27/25 04:38 06/27/25 04:38 Temperature Pulse Rate 72 Respiratory Rate Blood Pressure 147/66 H Pulse Oximetry 97 96 Oxygen Delivery Method Room Air 06/27/25 04:39 06/27/25 05:00 06/27/25 05:00 Temperature 98.6 F Pulse Rate 74 68 Respiratory Rate 16 Blood Pressure 147/66 H 151/67 H Pulse Oximetry 97 97 Oxygen Delivery Method Room Air 06/27/25 05:37 06/27/25 05:41 06/27/25 05:41 Temperature Pulse Rate 75 78 Respiratory Rate 21 Blood Pressure 126/59 L Pulse Oximetry 96 93 Oxygen Delivery Method MDM - Abdominal Pain Lab Data Attestation: I reviewed the patient's lab results. Lab results narrative: White blood cell count 87089, hemoglobin 14.5, platelets adequate. Glucose 131. Renal function, serum CO2, potassium normal. Sodium 135 slight low. Liver functions and lipase normal. 06/27/25 04:45 06/27/25 04:45 Labs: Lab Results 06/27/25 Range/Units 04:45 WBC 10.9 (4.5-11.0) X10^3/uL RBC 4.83 (4.0-5.2) X10^6/uL Hgb 14.5 (12.0-16.0) g/dL Hct 42.7 (36-46) % MCV 88.4 (80-100) fL MCH 30.0 (26-34) PG MCHC 33.9 (30-36) % RDW 16.7 H (11.6-14.8) % Plt Count 187 (150-400) X10^3/uL Neut % (Auto) 76.5 H (50-75) % Lymph % (Auto) 10.2 L (25-40) % [place] % (Auto) 7.2 (3-14) % Eos % (Auto) 1.8 L (2-4) % Baso % (Auto) 4.3 H (0-2) % Neut # (Auto) 8400 H (1114-8836) /uL Lymph # (Auto) 1100 (3850-4556) /uL [place] # (Auto) 800 (0-900) /uL Eos # (Auto) 200 (0-450) /uL Baso # (Auto) 500 H (0-100) /uL Sodium 135 L (137-145) mmol/L Potassium 3.9 (3.4-5.1) mmol/L Chloride 103 (98-107) mmol/L Carbon Dioxide 24 (22-32) mmol/L BUN 20 H (7-17) mg/dL Creatinine 0.66 (0.52-1.04) mg/dL Estimated GFR > 60 (>60) mL/min BUN/Creatinine Ratio 30.3 H (6-22) Glucose 131 H (70-99) mg/dL Calcium 9.2 (8.4-10.2) mg/dL Total Bilirubin 0.6 (0.2-1.3) mg/dL AST 31 (14-36) IU/L ALT 17 (<35) IU/L Alkaline Phosphatase 95 (38-126) U/L Total Protein 8.0 (6.3-8.2) g/dL Albumin 4.4 (3.5-5.0) g/dL Globulin 3.6 (1.7-4.1) g/dL Albumin/Globulin Ratio 1.2 (1.0-2.8) Lipase 88 (23-300) U/L ECG Data Attestation: I personally reviewed and interpreted this ECG as follows: Interpretation: 0514, normal sinus rhythm with rate of 67, no obvious ST segment elevation or depression changes. UT 122, QRS 80, QTC 441. [facility] Narrative Medical decision making narrative: 75-year-old female with history of diverticulitis to prior events, now with left lower quadrant abdominal pain that feels similar, increasing. Afebrile, sirs screen negative. Some tenderness left lower quadrant without guarding or rigidity. Normotensive. DDx consider diverticulitis, colitis, constipation, hernia, UTI, ureteral stone, physician gynecologist etiology, musculoskeletal, other. Labs including urinalysis pending. Declines opiates when pain medications discussed. IV Toradol, IVF bolus. Keep NPO. EKG sinus rhythm, no obvious ischemic changes. Lab data: White blood cell count 10120, hemoglobin 14.5, platelets adequate. Glucose 131. Renal function, serum CO2, potassium normal. Sodium 135 slight low. Liver functions and lipase normal. CT abdomen and pelvis with IV contrast. Impressions: ?Findings compatible with acute diverticulitis involving the sigmoid colon. No pericolonic focal drainable collection or pneumoperitoneum at present.. No mention of any intestinal obstruction changes. See tele radiology report. Allergy to sulfa noted. IV Zosyn dose ordered. Prescription for Augmentin 10 day course sent to her requested pharmacy. Home pack hydrocodone/APAP to use if needed. Home pack ODT ondansetron to use if needed. Discharged home with family. Consider future surgical consultation given her 3rd bout of diverticulitis, if a section of sigmoid might be candidate for excision. So far her bouts of diverticulitis have been uncomplicated. Recheck advised in clinic if not improving in the next few days. Advised to return to the emergency department for any change worsening symptoms or any concerns prior. Discharge Plan Departure Patient Disposition: Home Clinical Impression: Diverticulitis of sigmoid colon Instructions: DI for Diverticulitis Activity Restrictions/Additional Instructions: History of diverticulitis. Nontraumatic left lower quadrant abdominal pain typical of your previous bouts. No fever on triage, vital signs were normal range. You seemed to have improvement in your pain after Toradol dosing. CT scan showed uncomplicated appearing sigmoid diverticulitis, no mention of any bowel obstruction, no mentioned of any obstruction or perforation, and no history of gastrointestinal lower bleeding. Trial of outpatient antibiotics for now. IV Zosyn antibiotic given. Prescription for Augmentin oral antibiotic sent to your pharmacy for 10 day course. Take antibiotics as prescribed. Consider use of zpxc-[id number]-[id number] probiotics during and after course of like therapy. Consider recheck with your regular doctor if not improving in the next few days. Return to this/nearest emergency department for any change worsening symptoms or any concerns prior. Home pack of hydrocodone/acetaminophen provided if needed for pain control. Home pack also of oral dissolvable formulation ondansetron to control nausea, if needed. Consider surgery consultation later in follow up, as this is your 3rd bout of diverticulitis, and sometimes surgery might recommend excision removal of that problematic colon area. You might need referral from your primary care provider. However, local [facility] contact information provided. Prescriptions: New amoxicillin-pot clavulanate 875-125 mg tablet 1 tab PO BID Qty: 20 0RF No Action Restasis MultiDose 0.05 % drops 1 drp EYE-BOTH Q12H pantoprazole 40 mg tablet,delayed release (DR/EC) 80 mg PO BID Referrals: Romana Buchanan DO [Primary Care Provider, Internal Medicine] Emery Hansen MD [Physician, General Surgery] Nelson Govea MD [Physician, General Surgery] Stand Alone Forms: Patient Portal/API
[2025-06-27 05:03] LABS: Add Manual Diff / Slide Review NO; Hematocrit 42.7 % (36-46); Hemoglobin 14.5 g/dL (12.0-16.0); Lymphocytes Absolute Auto 1100 /uL (1100-4500); Mean Corpuscular HGB Conc 33.9 % (30-36); Mean Corpuscular Hemoglobin 30.0 PG (26-34); Mean Corpuscular Volume 88.4 fL (80-100); Platelet Count 187 X10^3/uL (150-400)
--- NOTE | 2025-06-27 05:05 | DI.CT.S_ITS ---
PROCEDURE: CT ABDOMEN PELVIS W CON INDICATIONS: LLQ pain, hx divertic TECHNIQUE: After the administration of intravenous contrast, axial sections acquired from the lung bases to the pubic symphysis. Coronal and sagittal reformats were performed. For radiation dose reduction, the following was used: automated exposure control, adjustment of mA and/or kV according to patient size. COMPARISON: [facility], CT, CT ABDOMEN PELVIS WITH CONTRAST, 06/21/2019, 11:22. FINDINGS: Image quality: Diagnostic Lower Chest: Bibasilar atelectasis. Small hiatal hernia. Heart size is normal. Coronary atherosclerotic vascular calcifications are noted. ABDOMEN: Liver: No solid mass. Multiple hepatic hypodensities are redemonstrated and compatible with hepatic cysts. Mildly nodular liver contour. Gallbladder: No radiopaque gallstones or wall thickening. Biliary ducts: No biliary dilation. Pancreas: No ductal dilation. Spleen: Size is within normal limits. Adrenal Glands: No adrenal nodules. Kidneys and Ureters: No hydronephrosis. No solid mass. No complex renal cystic lesion which requires follow up. Stomach and Bowel: Scattered colonic diverticula. Circumferential wall thickening of the sigmoid colon. Acute inflammatory changes of the sigmoid colon and diverticula. No abnormal fluid collection seen. No free air. Normal appendix. No evidence for small bowel obstruction or associated inflammatory changes. Peritoneum: No abnormal intraperitoneal fluid. No free air. Ventral Wall: No significant ventral hernia. Abdominal Nodes: No retroperitoneal or mesenteric adenopathy by size criteria. Vessels: Aorta and inferior vena cava are normal in size. PELVIS: Pelvic Organs: Unremarkable. Bladder: No bladder wall thickening, accounting for underdistention. Pelvic Nodes: No enlarged lymph nodes. Miscellaneous: No inguinal hernias are seen. Bones: No aggressive osseous abnormality. No acute vertebral body compression fractures. Multilevel spondylitic changes throughout the imaged spine. No suspicious osseous lesions. Grade 1 anterolisthesis of L5 on S1 with L5 pars defects. IMPRESSION: Findings consistent with acute diverticulitis involving the sigmoid colon. No evidence for perforation or abscess formation. No drainable fluid collection seen. Other chronic findings as above. No significant discrepancy with the scene shifter radiology preliminary report. Dictated by: Sony Roberts M.D. on 06/27/2025 at 6:59 Approved by: Sony Roberts M.D. on 06/27/2025 at 7:05
[2025-06-27] MEDS: KETOROLAC 30 MG/ML VIAL 15 MG IV (05:10)
[2025-06-27] MEDS: SODIUM CHLORIDE 0.9% 1,000 ML 1000 ML IV (05:10)
[2025-06-27 05:21] LABS: Alanine Aminotransferase 17 IU/L (<35); Albumin 4.4 g/dL (3.5-5.0); Albumin Globulin Ratio 1.2 (1.0-2.8); Alkaline Phosphatase 95 U/L (38-126); Blood Urea Nitrogen 20 mg/dL (7-17); Calcium 9.2 mg/dL (8.4-10.2); Carbon Dioxide 24 mmol/L (22-32); Chloride 103 mmol/L (98-107); Estimated Glomerular Filt Rate > 60 mL/min (>60); Globulin 3.6 g/dL (1.7-4.1); Glucose 131 mg/dL (70-99); HEMOLYSIS < 15 (0-50); Lipase 88 U/L (23-300); Potassium 3.9 mmol/L (3.4-5.1); Sodium 135 mmol/L (137-145); Total Protein 8.0 g/dL (6.3-8.2)
[2025-06-27] MEDS: PIPERACILLIN/TAZO 4.5 GM in SODIUM CHLORIDE 0.9% 100 ML IV (06:09)
[2025-06-27] MEDS: ONDANSETRON 4 MG ODT PREPACK 1 BOTTLE MISC (06:32)
== END 2025-06-27 06:51 | disposition home or self-care (01) ==
PROVIDERS: Emergency Provider Emergency Medicine; PCP Student in an Organized Health Care Education/Training Program
DX: K57.32 Diverticulitis of large intestine without perforation or abscess without bleeding (principal)
CPT/HCPCS: 36415; 74177; 80053; 83690; 85025; 93005; 96361; 96365; 96375; 99284; J1885; J2543; J7030; J7050; Q9967

== ENCOUNTER → 2025-08-23 13:50 | Outpatient (CLI) | payer MEDICARE, OTHER, SELFPAY ==
--- NOTE | 2025-08-23 13:51 | DI.ECHO.S_ITS ---
[facility] : : [address] : : [place] : : [id number] : : Phone: [phone] Echocardiogram Report + + :Name: WEST JUAREZ Study Date: 08/23/2025 Height: 62 in : :[facility] ReadingLocation: Weight: 120 lb : : Gender: Female BSA: 1.5 m2 : :: 1950 Age: 75 yrs BP: 128/71 mmHg: :Ordering Physician: JOSE RAMON ROBERTSON Performed By: [place] Head : :Referring: JOSE RAMON ROBERTSON : + + Interpretation Summary -The left ventricular contractility is normal. Estimated ejection fraction is greater than 55% with no segmental wall motion abnormalities. No LVH. Grade 1 diastolic dysfunction. - The right ventricular contractility is normal. - Left atrial enlargement noted. All other cardiac chambers are of normal size. - Mitral annular ring noted with mild mitral regurgitation. Mean gradient is 2.8 mmHg. - Moderate aortic insufficiency. - No obvious intracardiac shunts. - No obvious intracardiac masses nor thrombi. - No hemodynamically significant pericardial effusion. - Low right-sided filling pressures. Conclusion: Normal biventricular systolic function with mitral annular ring in place and associated mild mitral regurgitation. Moderate aortic insufficiency noted. When compared with previous echocardiogram, there may be a slight increase in the degree of aortic insufficiency. Procedure: A two-dimensional transthoracic echocardiogram with color flow and Doppler was performed. The study quality was technically adequate. Comparison is made with the echocardiogram of 09/20/2024. The patient was in normal sinus rhythm during the exam. Left Ventricle: The left ventricle is normal in size and wall thickness. Left ventricular systolic function is normal. The ejection fraction is estimated to be 55-60%. There are no focal wall motion abnormalities. Grade I diastolic dysfunction with normal left atrial pressure. Right Ventricle: The right ventricle is normal in size and function. Mitral Valve: An annuloplasty ring is noted in the mitral position. MV meanPG 2.76 mmHg at a heart rate of 62 BPM. There is mild mitral regurgitation. Aortic Valve: The aortic valve is trileaflet. The aortic valve opens well. There is no aortic valve stenosis. There is moderate aortic regurgitation. Tricuspid Valve: The tricuspid valve leaflets are thin and pliable. There is trace tricuspid regurgitation. Pulmonary artery pressures cannot be estimated because of the lack of a measurable TR jet velocity but the IVC suggests a CVP of around 3 mmHg. Pulmonic Valve: The pulmonic valve is not well seen, but is grossly normal. There is trace pulmonic regurgitation. Great Vessels: The aortic root is normal size. The ascending aorta is normal in size. The aortic arch is normal in size. The pulmonary artery is normal size. The IVC is of normal diameter and collapses greater than 50% with a sniff. This suggests a low right atrial pressure of 3 mm Hg. Pericardium/ Pleura There is no pericardial effusion. MMode/2D Measurements & Calculations LVIDd: 4.4 cm LVOT diam: 1.9 cm LVIDs: 3.1 cm Ao root diam: 2.9 cm FS: 29.9 % asc Aorta Diam: 3.0 cm IVSd: 0.77 cm Ao Arch Diam (Prox Trans): 2.2 cm LVPWd: 0.76 cm LV henley. diameter/BSA (cm/m^2): 2.9 LV sys. diameter/BSA (cm/m^2): 2.0 LA A2 area: 21.4 cm2 RA long axis: 4.5 cm LA A4 area: 18.6 cm2 RA area: 14.6 cm2 LA length (vol): 5.8 cm RA vol: 40.5 ml LA vol: 58.1 ml RA : 26.3 ml/m2 LA vol index: 37.7 ml/m2 IVC diam: 1.4 cm RVD1 (basal): 2.6 cm RVD2 (mid): 2.2 cm TAPSE: 1.7 cm Doppler Measurements & Calculations Ao V2 max: 120.1 cm/sec AI P1/2t: 491.7 msec Ao max P.8 mmHg AI dec slope: 294.2 cm/sec2 MV E max jose: 132.1 cm/sec TR max jose: 213.7 cm/sec MV A max jose: 101.7 cm/sec TR max P.3 mmHg MV E/A: 1.3 PA V2 max: 57.9 cm/sec Med Peak E' Jose: 5.7 cm/sec PA V2 mean: 38.9 cm/sec E/E' med: 23.1 PA mean P.69 mmHg Lat Peak E' Jose: 7.3 cm/sec PA pr(Accel): 30.2 mmHg E/E' lat: 18.1 E/e' average: 20.6 MV dec time: 0.26 sec MV V2 mean: 77.7 cm/sec Qp/Qs (Jona Alcaraz): 1.0/7.9 MV mean P.8 mmHg MV V2 VTI: 40.1 cm Reading Physician:CHRISTIANE
== END ==
LOC: ECHO 13:51
PROVIDERS: PCP Student in an Organized Health Care Education/Training Program; Referring Provider Internal Medicine; Visit Provider Internal Medicine
DX: I08.0 Rheumatic disorders of both mitral and aortic valves (principal); Z98.890 Other specified postprocedural states
CPT/HCPCS: 93306